=== PATIENT | female | born 1960 | race Two or more races ===

== ENCOUNTER 2018-06-01 13:35 | Emergency (ER) | payer MEDICAID ==
[~2018-06-01] VITALS: Ht 170.2 cm; Wt 81.6 kg
[~2018-06-01 13:35] MED LIST: ASPI81CH43; ATOR10TA
[2018-06-01 15:07] LABS: Urine Bacteria FEW /hpf (None Seen); Urine Blood Negative /uL (Negative); Urine Hyaline Cast FEW /lpf (0 - 2); Urine Mucus FEW (None Seen); Urine Specific Gravity 1.026 (1.001-1.035); Urine WBC 4 /hpf (0 - 5)
[2018-06-01 15:08] LABS: Basophils # (auto) 0 uL; Basophils % (auto) 0.4 % (0.0-2.0); Eosinophils # (auto) 0 uL; Eosinophils % (auto) 0.4 % (0.0-7.0); Hematocrit 42.7 % (36.0-46.0); Hemoglobin 15.2 g/dL (12.2-16.2); Lymphocytes # (auto) 2.1 uL; Lymphocytes % (auto) 19.3 % (10.0-50.0); Mean Corpuscular Hemoglobin 33.1 pg (28.0-32.0); Mean Corpuscular Hgb Conc. 35.7 g/dL (32.0-36.0); Mean Corpuscular Volume 92.8 fL (80.0-100.0); Monocytes # (auto) 0.7 uL; Monocytes % (auto) 6.3 % (0.0-12.0); Neutrophils % (auto) 73.6 % (37.0-80.0); Platelet Count (auto) 361 10^3/uL (140-450); Red Cell Distribution Width 12.7 % (11.8-14.3); White Blood Cell 10.8 10^3/uL (4.4-10.8)
[2018-06-01 15:10] LABS: INR 1.01 (0.9-1.15); Partial Thromboplastin Time 29.1 sec (23.78-33.04); Prothrombin Time 10.8 sec (9.27-12.13)
[2018-06-01 15:20] LABS: Alanine Aminotransferase 24 U/L (13-56); Albumin 4.4 g/dL (3.4-5.0); Alkaline Phosphatase 77 U/L (45-117); Anion Gap 13 (5-15); Aspartate Aminotransferase 10 U/L (15-37); BUN/Creatinine Ratio 21.4; Bilirubin, Total 0.3 mg/dL (0.2-1.0); Blood Urea Nitrogen 42 mg/dL (7-18); Calcium 8.5 mg/dL (8.5-10.1); Carbon Dioxide 17 mmol/L (21-32); Chloride 104 mmol/L (98-107); GFR African American 34 mL/min; GFR Non-African American 28 mL/min; Glucose 166 mg/dL (74-106); Potassium 3.5 mmol/L (3.5-5.1); Sodium 134 mmol/L (136-145); Total Protein 7.5 g/dL (6.4-8.2)
[2018-06-01 19:41] VITALS: BP 142/59
[2018-06-01] MEDS ORDERED: cefTRIAXone 1GM/10ml IVPUSH 10 ML IV ONE (20:15)
[2018-06-01] MEDS ORDERED: cefTRIAXone SOD 1,000 MG VL IM ONE (20:30)
== END 2018-06-01 20:07 | disposition home or self-care (01) ==
LOC: ER 13:35
DX: N39.0 Urinary tract infection, site not specified (principal); I10 Essential (primary) hypertension; E78.5 Hyperlipidemia, unspecified; Z86.73 Personal history of transient ischemic attack (TIA), and cerebral infarction without residual deficits
CPT/HCPCS: 36415; 70450; 71046; 80053; 81001; 82962; 83735; 84484; 85025; 85610; 85730; 93005; 99285; J0696

== ENCOUNTER 2024-11-27 20:17 | Emergency (ER) | payer MEDICAID ==
[~2024-11-27] VITALS: Ht 157.5 cm; Wt 77.0 kg
[2024-11-27] MEDS: LIDOCAINE 1% HCL (LOCAL ANESTH.) INJ 20ML MDV ID ONE (20:30)
--- NOTE | 2024-11-27 20:55 | ED.PDOC ---
HPI Comments This patient is a 64-year-old Welsh-speaking only female came to emergency room due to head injury. Patient accidentally hit her head on the nascimento of a car. Noted 2cm laceration at her left forehead, with minimal bleeding. Denies any loss of consciousness. Vital signs were stable on arrival. Patient denies any eye involvement. Chief Complaint: Head Injury Time Seen by MD: 20:49 Reviewed Notes: Nurses Notes Allergies: Coded Allergies: NO KNOWN ALLERGIES (Unverified , 09/04/12) Home Meds Active Scripts Acetaminophen (Acetaminophen) 500 Mg Tab, 500 MG PO Q4HP PRN, #30 TAB Prov:KATHERINE CHAND PAC 11/27/24 Cephalexin (KEFLEX CAPSULE) 250 Mg Cp, 1 CAP PO QID for 7 Days, #28 CAP Prov:KATHERINE CHAND PAC 11/27/24 Reported Medications Aspirin (Asa) 81 Mg Ch 09/04/12 [[id number] Mg] (Lipitor) 10 MG TAB No Conflict Check, MG 09/04/12 Information Source: Patient Mode of Arrival: Ambulatory Severity: Moderate Severity of Laceration: Controlled Bleeding Complexity: Simple Timing: Minutes Prehospital treatment: 12 Lead EKG Laceration Location: Forehead Mechanism: Direct Blow Laceration Length (cm): 2 Skin Type: Linear Depth of Injury: Skin, Mucosa Tendon Injury: 0% Distal Function Deficits: Motor Discharge: Bloody Erythema: Localized to Wound Edges Associated Signs and Symptoms: Bleeding Past Medical History PAST MEDICAL HISTORY: CVA, High Lipids, HTN 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 Family History Family History: Reviewed,noncontributory to illness Social History Smoker: Non-Smoker Alcohol: Denies ETOH Use Drugs: Denies Drug Use Lives In: Home Constitutional: denies: chills, diaphoresis, fatigue, fever, malaise, sweats, weakness, others EENTM: denies: blurred vision, double vision, ear bleeding, ear discharge, ear drainage, ear pain, ear ringing, eye pain, eye redness, hearing loss, mouth pain, mouth swelling, nasal discharge, nose bleeding, nose congestion, nose pain, photophobia, tearing, throat pain, throat swelling, voice changes, others Respiratory: denies: cough, hemoptysis, orthopnea, SOB at rest, shortness of breath, SOB with excertion, stridor, wheezing, others Cardiovascular: denies: chest pain, dizzy spells, diaphoresis, Dyspnea on exertion, edema, irregular heart beat, left arm pain, lightheadedness, palpitations, PND, syncope, others Gastrointestinal: denies: abdomen distended, abdominal pain, blood streaked bowels, constipated, diarrhea, dysphagia, difficulty swallowing, hematemesis, melena, nausea, poor appetite, poor fluid intake, rectal bleeding, rectal pain, vomiting, others Genitourinary: denies: abnormal vagina bleeding, burning, dyspareunia, dysuria, flank pain, frequency, hematuria, incontinence, pain, , vagina discharge, urgency, others Neurological: reports: headache; denies: dizziness, fainting, left sided numbness, left sided weakness, numbness, paresthesia, pre-existing deficit, right sided numbness, right sided weakness, seizure, speech problems, tingling, tremors, weakness, others Musculoskeletal: denies: back pain, gout, joint pain, joint swelling, muscle pain, muscle stiffness, neck pain, others Integumetry: reports: laceration (Left forehead); denies: bruises, change in color, change in hair/nails, dryness, lesions, lumps, rash, wounds, others Allergic/Immunocompromised: denies: Difficulty Healing, Frequent Infections, Hives, Itching, others Hematologic/Lymphatic: denies: anemia, blood clots, easy bleeding, easy bruising, swollen glands, others Endocrine: denies: excessive hunger, excessive sweating, excessive thirst, excessive urination, flushing, intolerance to cold, intolerance to heat, unexplained weight gain, unexplained weight loss, others Psychiatric: denies: anxiety, bipolar disorder, depression, hopeless, panic disorder, schizophrenia, sleepless, suicidal, others Physical Exam General Appearance: Mild Distress (Moderate distress due to some anxiety related to her scalp laceration), Normal HEENT: Normal ENT Inspection, Pharynx Normal, TMs Normal Neck: Full Range of Motion, Non-Tender, Normal, Normal Inspection Respiratory: Chest Non-Tender, Lungs Clear, No Accessory Muscle Use, No Respiratory Distress, Normal Breath Sounds Cardiovascular: No Edema, No JVD, No Murmur, No Gallop, Normal Peripheral Pulses, Regular Rate/Rhythm Breast Exam: Deferred Gastrointestinal: No Organomegaly, Non Tender, No Pulsatile Mass, Normal Bowel Sounds, Soft Genitalia: Deferred Pelvic: Deferred Rectal: Deferred Extremities: No calf tenderness, Normal capillary refill, Normal inspection, Normal range of motion, Non-tender, No pedal edema Musculoskeletal : Apperance: Normal Neurologic: Alert, No Motor Deficits, Normal Affect, Normal Mood, No Sensory Deficits Cerebellar Function: Normal Reflexes: Normal Skin: Dry, Lacerations (2 cm laceration noted to the superior left forehead. No active bleed. No skull depression or deformity. Mild localized edema and ecchymosis), Warm Lymphatic: No Adenopathy Was a procedure done? Was a procedure done?: Yes Sedation Sedation?: No Other Procedure Notes 4 cc of 1% lidocaine was utilized for local anesthesia. Sterile field was placed. Copious irrigation performed. Four 5-0 Ethilon sutures were placed in a simple interrupted fashion to close the wound. Minimal blood loss. Patient tolerated procedure well. Clean dressing applied Differential diagnosis Generic Laceration: Laceration, Avulsion Differential Diagnosis: Closed Head Injury X-Ray, Labs, Meds, VS Vital Signs Date Time Temp Pulse Resp B/P (MAP) Pulse Ox O2 Delivery O2 Flow Rate FiO2 11/27/24 22:21 178/69 11/27/24 21:48 179/97 11/27/24 21:25 80 18 97 Room Air* 0 21 11/27/24 21:25 97.8 80 18 179/97 (124) 97 97.8 11/27/24 20:30 97.9 79 18 191/106 (134) 95 Current Medications Medications (Trade) Dose Ordered Sig/[facility] Route Start Time Stop Time Status Last Admin Lidocaine HCl (Xylocaine 1%) 10 ml ONCE ONCE ID 11/27/24 20:30 11/27/24 20:31 DC 11/27/24 20:30 Clonidine HCl (Catapres Tablet) 0.2 mg ONCE ONCE PO 11/27/24 21:15 11/27/24 21:16 DC 11/27/24 21:48 Diphtheria/ Tetanus/Acell Pertussis (Boostrix T-Dap) 0.5 ml ONCE ONCE IM 11/27/24 22:30 11/27/24 22:31 11/27/24 22:29 X-Ray, Labs, Meds, VS Comment Advised patient that she would not require a head CT evaluation for wound. Patient tolerated procedure well. Advised patient utilize antibiotics as directed and additionally, follow up with the primary care provider or return to ED in eight days for re-evaluation and probable suture removal. At time of discharge, patient's blood pressure was elevated. Patient has a history of hypertension and states she did not take her nighttime medication. Patient was dose with a 0.2 clonidine and blood pressure was returning to an acceptable range at time of discharge. Time of 1ST Reevaluation: 20:59 Reevaluation 1ST: Improved Consultation: PCP Patient Education/Counseling: Diagnosis, Treatment Family Education/Counseling: Diagnosis, Treatment, No Family Present Departure 1 Departure Time of Disposition: 20:59 Impression: Primary Impression: Head trauma Additional Impression: Forehead laceration Disposition: HOME / SELF CARE / HOMELESS Condition: Stable Additional Instructions: Advised patient utilize antibiotics as directed until completion as well as additional medication as needed. Patient should return to primary care provider or ED in eight days for re-evaluation and probable suture removal. e-Prescriptions Acetaminophen (Acetaminophen) 500 Mg Tab 500 MG PO Q4HP PRN, #30 TAB Prov: KATHERINE CHAND PAC 11/27/24 Cephalexin (KEFLEX CAPSULE) 250 Mg Cp 1 CAP PO QID for 7 Days, #28 CAP Prov: KATHERINE CHAND PAC 11/27/24 Discharged With: Self, Friend Critical Care Note Critical Care Time?: No Stability Stability form required: No Heart Score Heart Score: Heart Score Response (Comments) Value History N/A 0 EKG N/A 0 Age N/A 0 Risk Factors N/A 0 Troponin N/A 0 Total 0 I personally scribed for KATHERINE CHAND PAC ([email or web address]) on 11/27/24 at 20:54. Electronically submitted by Mars Merritt ([email or web address]). KATHERINE CHAND PAC Nov 27, 2024 20:54
[2024-11-27] MEDS ORDERED: TETANUS-DIPTH-ACEL PERTUSSIS 0.5ML SYR Tdap IM ONE (21:00)
[2024-11-27] MEDS ORDERED: ACET500T58 PO (21:01)
[2024-11-27] MEDS ORDERED: CEPH250C PO (21:01)
[2024-11-27 21:25] VITALS: PULSE 80; RESP 18; O2SAT 97
[2024-11-27] MEDS: cloNIDine HCL 0.1 MG TAB PO ONE (21:48)
[2024-11-27] MEDS: TETANUS-DIPTH-ACEL PERTUSSIS 0.5ML SYR Tdap IM ONE (22:29)
[2024-11-27 23:13] VITALS: BP 113/67; PULSE 74; RESP 20; TEMP 97.9; O2SAT 97
== END 2024-11-27 23:12 | disposition home or self-care (01) ==
LOC: ER 20:17
DX: S01.81XA Laceration without foreign body of other part of head, initial encounter (principal); S09.90XA Unspecified injury of head, initial encounter; Z86.73 Personal history of transient ischemic attack (TIA), and cerebral infarction without residual deficits; I10 Essential (primary) hypertension; W22.8XXA Striking against or struck by other objects, initial encounter; Y93.89 Activity, other specified; Y92.89 Other specified places as the place of occurrence of the external cause; Y99.8 Other external cause status
CPT/HCPCS: 12011; 90471; 90715; 99285; J2003

== ENCOUNTER 2024-12-05 12:01 | Emergency (ER) | payer MEDICAID ==
[~2024-12-05] VITALS: Ht 165.1 cm; Wt 77.7 kg
[~2024-12-05 12:01] MED LIST changes: +ACET500T58 PO; +CEPH250C PO
[2024-12-05 12:26] VITALS: BP 133/69; PULSE 87; RESP 18; O2SAT 96
--- NOTE | 2024-12-05 12:48 | ED.PDOC ---
History of Present Illness HPI Comments A 64 YEAR OLD FEMALE PRESENTS TO THE ED WITH COMPLAINT OF SUTURE REMOVAL. PATIENT STATES SHE HAD SUTURES PLACED ON HER SCALP 9 DAYS AGO HERE IN THIS ED AND IS HERE IN THE ED TODAY TO HAVE THEM REMOVED. PATIENT DENIES FEVER, CHILLS, SHORTNESS OF BREATH, CHEST PAIN, ABDOMINAL PAIN, NAUSEA, VOMITING, HEADACHE, OR OTHER COMPLAINTS. NO OTHER SYMPTOMS OR MODIFYING FACTORS AT THIS TIME. PATIENT IS ALERT, ORIENTED X 4, AND HAS STEADY GAIT. Chief Complaint: Suture Removal Time Seen by MD: 12:13 Reviewed Notes: Nurses Notes, Medications, Allergies Allergies: Coded Allergies: NO KNOWN ALLERGIES (Unverified , 09/04/12) Home Meds Active Scripts Acetaminophen (Acetaminophen) 500 Mg Tab, 500 MG PO Q4HP PRN, #30 TAB Prov:KATHERINE CHAND PAC 11/27/24 Cephalexin (KEFLEX CAPSULE) 250 Mg Cp, 1 CAP PO QID for 7 Days, #28 CAP Prov:KATHERINE CHAND PAC 11/27/24 Reported Medications Aspirin (Asa) 81 Mg Ch 09/04/12 [[id number] Mg] (Lipitor) 10 MG TAB No Conflict Check, MG 09/04/12 Information Source: Patient Mode of Arrival: Ambulatory Severity: None Timing: Days Duration: Since onset, Days Prehospital treatment: None Medication Refill: For: Other (SUTURE REMOVAL) Past Medical History PAST MEDICAL HISTORY: CVA, High Lipids, HTN 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 History Family History Family History: Reviewed,noncontributory to illness Social History Smoker: Non-Smoker Alcohol: Denies ETOH Use Drugs: Denies Drug Use Lives In: Home Constitutional: denies: chills, diaphoresis, fatigue, fever, malaise, sweats, weakness, others EENTM: denies: blurred vision, double vision, ear bleeding, ear discharge, ear drainage, ear pain, ear ringing, eye pain, eye redness, hearing loss, mouth pain, mouth swelling, nasal discharge, nose bleeding, nose congestion, nose pain, photophobia, tearing, throat pain, throat swelling, voice changes, others Respiratory: denies: cough, hemoptysis, orthopnea, SOB at rest, shortness of breath, SOB with excertion, stridor, wheezing, others Cardiovascular: denies: chest pain, dizzy spells, diaphoresis, Dyspnea on exertion, edema, irregular heart beat, left arm pain, lightheadedness, palpitations, PND, syncope, others Gastrointestinal: denies: abdomen distended, abdominal pain, blood streaked bowels, constipated, diarrhea, dysphagia, difficulty swallowing, hematemesis, melena, nausea, poor appetite, poor fluid intake, rectal bleeding, rectal pain, vomiting, others Genitourinary: denies: abnormal vagina bleeding, burning, dyspareunia, dysuria, flank pain, frequency, hematuria, incontinence, pain, , vagina disc harge, urgency, others Neurological: denies: dizziness, fainting, headache, left sided numbness, left sided weakness, numbness, paresthesia, pre-existing deficit, right sided numbness, right sided weakness, seizure, speech problems, tingling, tremors, weakness, others Musculoskeletal: denies: back pain, gout, joint pain, joint swelling, muscle pain, muscle stiffness, neck pain, others Integumetry: reports: laceration (REPAIRED ON LEFT FOREHEAD. ); denies: bruises, change in color, change in hair/nails, dryness, lesions, lumps, rash, wounds, others Allergic/Immunocompromised: denies: Difficulty Healing, Frequent Infections, Hives, Itching, others Hematologic/Lymphatic: denies: anemia, blood clots, easy bleeding, easy bruising, swollen glands, others Endocrine: denies: excessive hunger, excessive sweating, excessive thirst, excessive urination, flushing, intolerance to cold, intolerance to heat, unexplained weight gain, unexplained weight loss, others Psychiatric: denies: anxiety, bipolar disorder, depression, hopeless, panic disorder, schizophrenia, sleepless, suicidal, others All Other Systems: Reviewed and Negative Physical Exam General Appearance: No Apparent Distress, Normal HEENT: Normal ENT Inspection, PERRL/EOMI, Pharynx Normal, TMs Normal Neck: Full Range of Motion, Non-Tender, Normal, Normal Inspection Respiratory: Chest Non-Tender, Lungs Clear, No Accessory Muscle Use, No Respiratory Distress, Normal Breath Sounds Cardiovascular: No Edema, No JVD, No Murmur, No Gallop, Normal Peripheral Pulses, Regular Rate/Rhythm Breast Exam: Deferred Gastrointestinal: No Organomegaly, Non Tender, No Pulsatile Mass, Normal Bowel Sounds, Soft Genitalia: Deferred Pelvic: Deferred Rectal: Deferred Extremities: No calf tenderness, Normal capillary refill, Normal inspection, Normal range of motion, Non-tender, No pedal edema Musculoskeletal : Apperance: Normal Neurologic: Alert, unit support representative II-XII nml as Tested, No Motor Deficits, Normal Affect, Normal Mood, No Sensory Deficits Cerebellar Function: Normal Reflexes: Normal Skin: Dry, Lacerations (LEFT FOREHEAD REPAIRED, HEALED LACERATION, NO INFECTION SIGNS. ), Normal Color, Warm Peripheral Pulses: 2+ carotid (R), 2+ carotid (L) Lymphatic: No Adenopathy Was a procedure done? Was a procedure done?: No Differential Dx Considerations may include: SUTURE REMOVAL, WOUND RECHECK, WOUND INFECTION X-Ray, Labs, Meds, VS Vital Signs Date Time Temp Pulse Resp B/P (MAP) Pulse Ox O2 Delivery O2 Flow Rate FiO2 12/05/24 12:26 98.7 87 18 133/69 (90) 96 X-Ray, Labs, Meds, VS Comment EXTERNAL MEDICAL RECORDS REVIEWED: [NONE] INDEPENDENT HISTORIANS: [NONE] SOCIAL DETERMINANTS OF HEALTH: [NONE] LABS ORDERED: NONE REVIEWED AND INTERPRETED RESULTS: NONE IMAGING ORDERED: NONE TREATMENTS ORDERED: NONE PROCEDURES PERFORMED: NONE CRITICAL CARE TIME: NONE I HAVE DISCUSSED THE PATIENT WITH THE ATTENDING PHYSICIAN DR. URBAN AND HE AGREES WITH THE PATIENT'S PLAN OF CARE AND DISPOSITION. BASED ON HISTORY OF PRESENT ILLNESS, AND PHYSICAL EXAM, PATIENT WILL BE DISCHARGED HOME. SHARED DECISION MAKING: PATIENT INSTRUCTED TO FOLLOW UP WITH PRIMARY CARE PROVIDER IN 1-2 DAYS FOR RE-EVALUATION OF SYMPTOMS. PATIENT VERBALIZES UNDERSTANDING TO RETURN TO ED FOR NEW OR WORSENING SYMPTOMS OR IF FOLLOW UP WITH PCP CANNOT BE OBTAINED. PATIENT FEELS COMFORTABLE GOING HOME AT THIS TIME. ALL QUESTIONS ADDRESSED AT TIME OF DISCHARGE. Time of 1ST Reevaluation: 13:00 Reevaluation 1ST: Improved Patient Education/Counseling: Diagnosis, Treatment, Need For Follow Up Family Education/Counseling: Diagnosis, Treatment, Need For Follow Up Medical Screening: No EMC Exist At This Time Departure 1 Departure Time of Disposition: 13:00 Impression: Primary Impression: Encounter for removal of sutures Disposition: 01 HOME / SELF CARE / HOMELESS Condition: Stable Additional Instructions: FOLLOW-UP WITH PCP IN 1 TO 2 DAYS. RETURN TO ED FOR ANY NEW OR WORSENING SYMPTOMS. Discharged With: Self Critical Care Note Critical Care Time?: No Stability Stability form required: No I personally scribed for CASH MANZO ([email or web address]) on 12/05/24 at 12:48. Electronically submitted by Thiago Lyn ([email or web address]). CASH MANZO Dec 05, 2024 12:48
== END 2024-12-05 12:52 | disposition home or self-care (01) ==
LOC: ER 12:01
DX: S01.81XD Laceration without foreign body of other part of head, subsequent encounter (principal); I10 Essential (primary) hypertension; E78.5 Hyperlipidemia, unspecified; Z48.02 Encounter for removal of sutures; Z86.73 Personal history of transient ischemic attack (TIA), and cerebral infarction without residual deficits; Z98.890 Other specified postprocedural states; Z79.899 Other long term (current) drug therapy; X58.XXXD Exposure to other specified factors, subsequent encounter

== ENCOUNTER 2025-03-10 14:45 | Outpatient (CLI) | payer MEDICAID | END 2025-03-10 17:00 | disposition home or self-care (01) | LOC: LAB 14:45 | PROVIDERS: ATTEND Internal Medicine | DX: R25.2 Cramp and spasm (principal) | CPT/HCPCS: 36415; 82550 ==

== ENCOUNTER 2025-03-31 10:22 | Outpatient (CLI) | payer MEDICAID ==
[2025-03-31 11:14] LABS: Anion Gap 12 (5-15); Calcium 9.3 mg/dL (8.7-10.4); Carbon Dioxide 22 mmol/L (20-31); Potassium 3.9 mmol/L (3.5-5.1); Sodium 142 mmol/L (136-145)
[2025-03-31 11:18] LABS: Chloride 108 mmol/L (98-107)
[2025-03-31 11:20] LABS: BUN/Creatinine Ratio 23.9 (10.0-20.0); Blood Urea Nitrogen 16 mg/dL (9-23)
[2025-03-31 11:22] LABS: Glucose 113 mg/dL (74-106)
== END 2025-03-31 17:00 | disposition home or self-care (01) ==
LOC: LAB 10:22
PROVIDERS: ATTEND Internal Medicine
DX: E78.5 Hyperlipidemia, unspecified (principal); R25.2 Cramp and spasm; R73.03 Prediabetes
CPT/HCPCS: 36415; 80048

== ENCOUNTER → 2025-06-18 | Outpatient (CLI) | payer MEDICAID ==
[2025-06-18 10:58] LABS: Alanine Aminotransferase 21.0 U/L (7-40); Albumin 4.4 g/dL (3.2-4.8); Alkaline Phosphatase 105.0 U/L (46-116); Total Protein 6.7 g/dL (5.7-8.2); Triglycerides 138.0 mg/dL (< 150)
[2025-06-18 10:59] LABS: Bilirubin, Direct 0.2 mg/dL (<0.3); Bilirubin, Total 0.5 mg/dL (0.2-1.0); Cholesterol 147.0 mg/dL (< 200); Creatine Kinase IFCC 48.0 U/L (34-145); HDL Cholesterol 53.0 mg/dL (40-59)
== END | disposition home or self-care (01) ==
LOC: LAB 09:56
PROVIDERS: ATTEND Internal Medicine
DX: E78.5 Hyperlipidemia, unspecified (principal)
CPT/HCPCS: 36415; 80061; 80076; 82550

== ENCOUNTER 2025-09-23 10:47 | Outpatient (CLI) | payer MEDICAID ==
[2025-09-23] MEDS ORDERED: LIDOCAINE VISCOUS 2% 15ML UD ONE (13:01)
== END 2025-09-23 17:00 | disposition home or self-care (01) ==
LOC: LAB 10:47
PROVIDERS: ATTEND Internal Medicine
DX: R73.03 Prediabetes (principal)
CPT/HCPCS: 36415; 83036